=== PATIENT | male | born 1980 | race American Indian/Alaskan Native ===

== ENCOUNTER 2018-01-02 11:40 | Inpatient (IN) | payer BC ==
[~2018-01-02] VITALS: Ht 170.2 cm; Wt 85.0 kg
[2018-01-02] MEDS ORDERED: normal saline 1000ML IV soln IVB ONE (13:05)
[2018-01-02] MEDS ORDERED: morphine 4 MG/ML inj SYRINge IV ONE (13:05)
[2018-01-02] MEDS ORDERED: vancomycin/NS 1 GM ADD-VANTAGE 250 ML IV ONE (13:05)
[2018-01-02 13:37] LABS: EOSINOPHILS % (AUTO) 0 % (0-6); HEMATOCRIT 38.2 % (42.0-52.0); HEMOGLOBIN 13.2 g/dl (14.0-17.9); LYMPHOCYTES % (AUTO) 7.4 % (21-51); MEAN CORPUSCULAR HEMOGLOBIN 29.7 PG (27.0-31.0); MEAN CORPUSCULAR HGB CONC 34.7 % (33.0-36.5); MEAN CORPUSCULAR VOLUME 85.6 FL (78-98); MONOCYTES % (AUTO) 8.1 % (2-12); NEUTROPHILS % (AUTO) 82.9 % (42-75); PLATELET COUNT 324 X10'3 (140-440); RED BLOOD COUNT 4.46 X10'6 (4.70-6.10); RED CELL DISTRIBUTION WIDTH 13.8 % (11.5-14.5)
[2018-01-02 13:38] LABS: BASOPHILS % (AUTO) 1.6 % (0-1); NEUTROPHILS # (AUTO) 10.7 X10'3 (1.8-7.7)
[2018-01-02 13:40] LABS: BASOPHILS # (AUTO) 0.2 X10'3 (0-0.2); MONOCYTES # (AUTO) 1.1 X10'3 (0-0.9)
[2018-01-02 13:50] LABS: ALANINE AMINOTRANSFERASE 59 U/L (12-78); ALBUMIN 3.3 G/DL (3.4-5.0); ALBUMIN/GLOBULIN RATIO 0.9 (1.1-1.5); ALKALINE PHOSPHATASE 88 IU/L (46-116); ANION GAP 11 (8-16); ASPARTATE AMINO TRANSFERASE 23 U/L (10-37); BILIRUBIN,TOTAL 1.1 MG/DL (0.1-1.0); BLOOD UREA NITROGEN 11 MG/DL (7-18); BUN/CREATININE RATIO 12.4 (5.4-32.0); CHLORIDE 99 MMOL/L (99-107); CREATININE 0.89 MG/DL (0.60-1.10); GLUCOSE 120 MG/DL (70-104); POTASSIUM 3.8 MMOL/L (3.5-5.1); SODIUM 136 MMOL/L (135-145); TOTAL PROTEIN 7.1 G/DL (6.4-8.2); eGFR > 90 ML/MIN
[2018-01-02] MEDS ORDERED: magnesium hydroxide 30ml (MOM) UD suspension PO PRN (16:15)
[2018-01-02] MEDS ORDERED: mag hydrox/Alum hydrox/simeth 30ml oral suspension PO PRN (16:15)
[2018-01-02] MEDS ORDERED: ondansetron/PF 4mg/2ml inj IV PRN (16:15)
[2018-01-02] MEDS ORDERED: HYDR-3965 PO (17:35)
[2018-01-02] MEDS ORDERED: IBUP100O20 PO (17:35)
[2018-01-02] MEDS: acetaminophen 325mg tablet PO PRN (18:19)
[2018-01-02 18:20] VITALS: BP 113/71
[2018-01-02] MEDS: lactobacillus rhamnosus 10,000 MMU CELLS/CAPSULE PO SCH (19:36)
[2018-01-02] MEDS ORDERED: HYDROcodone/acetaminophen 5mg/325mg tablet PO PRN (20:45)
[2018-01-02] MEDS: HYDROcodone/acetaminophen 10/325mg tab PO PRN (22:34)
[2018-01-02] MEDS: vancomycin inj 1,250 MG in normal saline 250ml IV soln 250 ML IV SCH (23:23)
[2018-01-03] VITALS: BP 115/78
[2018-01-03] MEDS: acetaminophen 325mg tablet PO PRN ×2 (01:09→15:52)
[2018-01-03 06:04] LABS: ALBUMIN 2.9 G/DL (3.4-5.0); ANION GAP 10 (8-16); BLOOD UREA NITROGEN 12 MG/DL (7-18); BUN/CREATININE RATIO 12.1 (5.4-32.0); CALCIUM 8.1 MG/DL (8.5-10.1); CHLORIDE 102 MMOL/L (99-107); CREATININE 0.99 MG/DL (0.60-1.10); GLUCOSE 118 MG/DL (70-104); POTASSIUM 3.6 MMOL/L (3.5-5.1); SODIUM 138 MMOL/L (135-145); TOTAL CARBON DIOXIDE 26.5 MMOL/L (24-32); eGFR 84 ML/MIN
[2018-01-03 06:59] LABS: HEMATOCRIT 33.9 % (42.0-52.0); MEAN CORPUSCULAR HEMOGLOBIN 30.5 PG (27.0-31.0); MEAN CORPUSCULAR VOLUME 86.1 FL (78-98); RED BLOOD COUNT 3.94 X10'6 (4.70-6.10); WHITE BLOOD COUNT 12.1 X10'3 (4.5-11.0)
[2018-01-03 07:00] VITALS: BP 123/57
[2018-01-03 07:00] LABS: BASOPHILS % (AUTO) 0.3 % (0-1); EOSINOPHILS % (AUTO) 0 % (0-6); LYMPHOCYTES # (AUTO) 1.6 X10'3 (1.1-4.8); LYMPHOCYTES % (AUTO) 13.1 % (21-51); MEAN CORPUSCULAR HGB CONC 35.5 % (33.0-36.5); MEAN PLATELET VOLUME 7.3 FL (7.4-10.4); MONOCYTES # (AUTO) 1.1 X10'3 (0-0.9); MONOCYTES % (AUTO) 8.8 % (2-12); NEUTROPHILS # (AUTO) 9.4 X10'3 (1.8-7.7); NEUTROPHILS % (AUTO) 77.8 % (42-75); PLATELET COUNT 292 X10'3 (140-440); RED CELL DISTRIBUTION WIDTH 13.4 % (11.5-14.5)
[2018-01-03] MEDS: HYDROcodone/acetaminophen 10/325mg tab PO PRN ×2 (08:51→19:28)
[2018-01-03] MEDS: lactobacillus rhamnosus 10,000 MMU CELLS/CAPSULE PO SCH ×2 (08:52→19:27)
[2018-01-03] MEDS: vancomycin inj 1,250 MG in normal saline 250ml IV soln 250 ML IV SCH ×3 (08:52→22:50)
[2018-01-03 11:00] VITALS: BP 132/74
[2018-01-03] MEDS: levoFLOXACIN 750MG TABLET PO SCH (12:24)
[2018-01-03 18:00] VITALS: BP 134/73
[2018-01-03] MEDS ORDERED: VANCOMYCIN LEVEL IV ONE (22:30)
[2018-01-04] VITALS: BP 124/74
[2018-01-04] MEDS: HYDROcodone/acetaminophen 10/325mg tab PO PRN (03:51)
[2018-01-04 05:36] LABS: BASOPHILS # (AUTO) 0.1 X10'3 (0-0.2); BASOPHILS % (AUTO) 0.5 % (0-1); EOSINOPHILS % (AUTO) 0 % (0-6); HEMOGLOBIN 13.6 g/dl (14.0-17.9); LYMPHOCYTES # (AUTO) 1.5 X10'3 (1.1-4.8); LYMPHOCYTES % (AUTO) 14.6 % (21-51); MEAN CORPUSCULAR HEMOGLOBIN 29.9 PG (27.0-31.0); MEAN CORPUSCULAR HGB CONC 34.8 % (33.0-36.5); MEAN CORPUSCULAR VOLUME 85.9 FL (78-98); MEAN PLATELET VOLUME 7.2 FL (7.4-10.4); MONOCYTES # (AUTO) 0.7 X10'3 (0-0.9); MONOCYTES % (AUTO) 6.9 % (2-12); NEUTROPHILS # (AUTO) 8.2 X10'3 (1.8-7.7); PLATELET COUNT 318 X10'3 (140-440); RED BLOOD COUNT 4.54 X10'6 (4.70-6.10); RED CELL DISTRIBUTION WIDTH 13.5 % (11.5-14.5); WHITE BLOOD COUNT 10.5 X10'3 (4.5-11.0)
[2018-01-04 05:49] LABS: ALBUMIN 3.2 G/DL (3.4-5.0); ANION GAP 11 (8-16); BLOOD UREA NITROGEN 11 MG/DL (7-18); BUN/CREATININE RATIO 10.6 (5.4-32.0); CALCIUM 8.6 MG/DL (8.5-10.1); CHLORIDE 101 MMOL/L (99-107); CREATININE 1.04 MG/DL (0.60-1.10); GLUCOSE 104 MG/DL (70-104); SODIUM 138 MMOL/L (135-145); TOTAL CARBON DIOXIDE 26.4 MMOL/L (24-32); eGFR 80 ML/MIN
[2018-01-04 05:53] LABS: POTASSIUM 3.4 MMOL/L (3.5-5.1)
[2018-01-04] MEDS: vancomycin inj 1,250 MG in normal saline 250ml IV soln 250 ML IV SCH (07:14)
[2018-01-04] MEDS: lactobacillus rhamnosus 10,000 MMU CELLS/CAPSULE PO SCH (07:14)
[2018-01-04 08:00] VITALS: BP 115/62
[2018-01-04] MEDS: levoFLOXACIN 750MG TABLET PO SCH (11:38)
[2018-01-04] MEDS ORDERED: LEVO750T46 PO (15:43)
[2018-01-04] MEDS ORDERED: CLIN-5 PO (15:43)
[2018-01-05] MEDS ORDERED: VANCOMYCIN LEVEL IV ONE (14:30)
== END 2018-01-04 16:49 | disposition home or self-care (01) | DRG 603 ==
LOC: ER 11:41 → ED HOLD 16:11 → SUR 3N 18:09
PROVIDERS: ADMIT Hospitalist; ATTEND Family Medicine
DX: L03.114 Cellulitis of left upper limb (principal); I80.8 Phlebitis and thrombophlebitis of other sites
CPT/HCPCS: 36415; 73090; 80048; 80053; 80202; 83605; 85025; 87040; 87070; 96365; 96366; 96375; 99285; J2270; J3370; J7030